=== PATIENT | male | born 2000 | race Caucasian/White ===

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

== ENCOUNTER 2021-10-03 18:16 | Emergency (ER) | payer OTHER ==
[2021-10-03 18:28] VITALS: BP 126/78; PULSE 82
[2021-10-03 19:20] LABS: ANION GAP 12.2 mmol/L (5-15); CHLORIDE,CL 104 mmol/L (98-107); SODIUM,NA 140 mmol/L (136-145)
== END 2021-10-03 19:46 | disposition home or self-care (01) ==
LOC: VM.ED 18:16
DX: G56.03 Carpal tunnel syndrome, bilateral upper limbs (principal)
CPT/HCPCS: 36415; 80053; 84443; 85025; 86140; 87476; 99283; 99284